=== PATIENT | female | born 2000 | race Two or more races ===

== ENCOUNTER 2023-01-03 14:48 | Emergency (ER) | payer OTHER ==
[~2023-01-03] VITALS: Ht 165.1 cm; Wt 53.5 kg
[~2023-01-03 14:48] MED LIST: OSEL75CA PO; PRENATE DHA SO1 EAC1 PO; PROVENTIL0.5 ML/2.5 IH; TUSSIN100 MG/51 PO
[2023-01-03 17:01] LABS: HEMATOCRIT 33.2 % (36.0-45.00); HEMOGLOBIN 11.3 g/dL (12.0-15.00); MEAN CELL VOLUME 82.8 fL (80.00-100.00); MEAN CORPUSCULAR HEMOGLOBIN 28.2 pg (27.00-32.0); MEAN CORPUSCULAR HGB CONC 34.1 g/dl (32.0-36.0); PLATELET COUNT 264 K/uL (150-450); RED BLOOD COUNT 4.01 M/uL (4.00-6.00); RED CELL DISTRIBUTION WIDTH 15.8 % (11.5-14.5)
[2023-01-03] MEDS ORDERED: XOPENEX CO1.25 MG/0. IH (17:46)
[2023-01-03] MEDS ORDERED: ZITHROMAX500 MG PO (17:46)
[2023-01-03] MEDS ORDERED: TUSSIN100 MG/51 PO (17:46)
== END 2023-01-03 18:04 | disposition home or self-care (01) ==
LOC: ER 14:48
PROVIDERS: General Practice
DX: O99.512 Diseases of the respiratory system complicating pregnancy, second trimester (principal); J06.9 Acute upper respiratory infection, unspecified; Z3A.19 19 weeks gestation of pregnancy; Z20.822 Contact with and (suspected) exposure to COVID-19

== ENCOUNTER 2023-04-01 13:12 | Emergency (ER) | payer OTHER ==
[~2023-04-01] VITALS: Ht 170.2 cm; Wt 54.4 kg
[~2023-04-01 13:12] MED LIST changes: +XOPENEX CO1.25 MG/0. IH; +ZITHROMAX500 MG PO
== END 2023-04-01 16:02 | disposition home or self-care (01) ==
LOC: ER 13:13
DX: O98.513 Other viral diseases complicating pregnancy, third trimester (principal); U07.1 COVID-19; Z3A.29 29 weeks gestation of pregnancy

== ENCOUNTER 2023-05-31 15:30 | Inpatient (IN) | payer OTHER ==
[~2023-05-31] VITALS: Ht 165.1 cm; Wt 68.0 kg
[2023-06-09] MEDS ORDERED: RINGERS SOLUTION,LACTATED 1,000 ML IV SCH (05:45)
[2023-06-09] MEDS ORDERED: OXYTOCIN 20 UNITS/500ML RL PIGGYBAG IV ONE (06:21)
[2023-06-09 06:42] LABS: PH,URINE 7.5 (5.0-8.0); URINE APPEARANCE Clear; URINE BILIRRUBIN Negative (NEGATIVE); URINE BLOOD Negative; URINE COLOR Yellow; URINE GLUCOSE Negative (NEGATIVE); URINE LEUKOCYTE Moderate; URINE NITRATE Negative; URINE PROTEIN Negative (NEGATIVE)
[2023-06-09 06:43] LABS: URINE BACTERIA 2538.7 uL (0.0-1933); URINE EPITHELIAL CELLS 50.2 uL (0.0-38.8); URINE WBC 29.8 uL (0.0-23.2)
[2023-06-09 06:54] LABS: URINE RBC 0.4 uL (0.0-20.8)
[2023-06-09] MEDS ORDERED: OXYTOCIN 500 ML IV SCH (07:00)
[2023-06-09 07:24] LABS: HEMATOCRIT 35.7 % (36.0-45.00); HEMOGLOBIN 12.1 g/dL (12.0-15.00); MEAN CELL VOLUME 84.3 fL (80.00-100.00); MEAN CORPUSCULAR HEMOGLOBIN 28.5 pg (27.00-32.0); MEAN CORPUSCULAR HGB CONC 33.8 g/dl (32.0-36.0); PLATELET COUNT 196 K/uL (150-450); RED BLOOD COUNT 4.24 M/uL (4.00-6.00); RED CELL DISTRIBUTION WIDTH 17.1 % (11.5-14.5)
[2023-06-09 07:39] LABS: INR < 0.93; PARTIAL THROMBOPLASTIN TIME 27.5 SECONDS (22.0-34.0); PROTHROMBIN TIME 9.8 SECONDS (9.0-11.5)
[2023-06-09] MEDS ORDERED: MEPERIDINE HCL/PF 50 MG/ML VIAL IV STA (08:04)
[2023-06-09] MEDS ORDERED: PROMETHAZINE HCL 25 MG/ML AMPUL IV STA (08:05)
[2023-06-09] MEDS ORDERED: CHLORHEXIDINE GLUCONATE 120 ML BOTTLE TOP ONE ×2 (09:07→14:15)
[2023-06-09] MEDS ORDERED: OXYTOCIN 20 UNITS/1000ML RL PIGGYBAG IV ONE ×2 (09:08→14:15)
[2023-06-09] MEDS ORDERED: ERYTHROMYCIN BASE 1 GM TUBE OP ONE ×2 (09:08→14:15)
[2023-06-09] MEDS ORDERED: ACETAMINOPHEN 325 MG TABLET PO PRN (14:15)
[2023-06-09] MEDS ORDERED: OxyCODONE HCL/APAP UD (PERCOCET) PO PRN (14:15)
[2023-06-09] MEDS ORDERED: LIDOCAINE HCL 1% 200MG/20ML VIAL IJ ONE (14:15)
[2023-06-09] MEDS ORDERED: BENZOCAINE/MENTHOL 90 ML BOTTLE TOP SCH (17:00)
[2023-06-09] MEDS ORDERED: HYDROCORTISONE 2.5% 30 GM TUBE RECTAL SCH (17:00)
[2023-06-10 02:15] LABS: HEMATOCRIT 34.2 % (36.0-45.00); HEMOGLOBIN 11.4 g/dL (12.0-15.00); MEAN CELL VOLUME 82.8 fL (80.00-100.00); MEAN CORPUSCULAR HEMOGLOBIN 27.5 pg (27.00-32.0); MEAN CORPUSCULAR HGB CONC 33.2 g/dl (32.0-36.0); PLATELET COUNT 174 K/uL (150-450); RED BLOOD COUNT 4.13 M/uL (4.00-6.00)
== END 2023-06-11 15:54 | disposition home or self-care (01) | DRG 807 ==
LOC: LDR 06-09 05:21 → OB/GYN 06-09 13:59 → LDR 06-11 15:30 → OB/GYN 06-11 15:54
PROVIDERS: ADMIT Specialist; ATTEND Specialist
PROC: 10E0XZZ Delivery of Products of Conception, External Approach (ICD-10-PCS; principal; 2023-06-09)
PROC: 0HQ9XZZ Repair Perineum Skin, External Approach (ICD-10-PCS; 2023-06-09)
PROC: 4A1HXCZ Monitoring of Products of Conception, Cardiac Rate, External Approach (ICD-10-PCS; 2023-06-09)
DX: O70.0 First degree perineal laceration during delivery (principal); Z37.0 Single live birth; Z3A.39 39 weeks gestation of pregnancy; Z20.822 Contact with and (suspected) exposure to COVID-19

== ENCOUNTER 2024-05-06 16:13 | Emergency (ER) | payer OTHER ==
[~2024-05-06] VITALS: Ht 165.1 cm; Wt 52.2 kg
== END 2024-05-06 17:09 | disposition home or self-care (01) ==
LOC: ER 16:15
DX: R53.81 Other malaise (principal); T78.40XA Allergy, unspecified, initial encounter